=== PATIENT | male | born 1990 | race Caucasian/White ===

== ENCOUNTER 2017-07-04 20:21 | Emergency (ER) | payer BC ==
[2017-07-04 21:33] VITALS: BP 126/75
--- NOTE | 2017-07-06 09:58 | ER ---
DATE SEEN: 07/04/2017 CHIEF COMPLAINT: Chest pain. HISTORY OF PRESENT ILLNESS: This is a 26-year-old male who was at work, developed pain in the chest and head. Symptoms largely lasted about an hour, and by the time he got here, symptoms had spontaneously improved. There was no radiation. No association with any shortness of breath, fever, chills, cough, nausea, or vomiting. PAST MEDICAL HISTORY: Asthma. SOCIAL HISTORY: He is a smoker. MEDICATIONS: None except albuterol as needed. ALLERGIES: No known allergies. PHYSICAL EXAMINATION: GENERAL: He is well nourished. VITAL SIGNS: Oxygenation 100% on room air, pulse is 70 beats per minute, blood pressure is normal. EARS, NOSE, AND THROAT: Negative. NECK: Supple. Trachea is midline. CHEST: Clear. No reproducible tenderness. ABDOMEN: Soft. MENTAL STATUS: Normal affect. No signs of moy or psychosis. LABORATORY DATA: EKG normal sinus rhythm. No ST changes. IMPRESSION: Atypical chest pain. PLAN: My plan is to reassure the patient and he is to return home. Return to the ED with any worsening symptoms. Time seen is 2044. /[id number] CHIO/MARLENE
== END 2017-07-04 21:00 | disposition home or self-care (01) ==
LOC: FB.ED 20:21
DX: R07.89 Other chest pain (principal); J45.909 Unspecified asthma, uncomplicated; F17.200 Nicotine dependence, unspecified, uncomplicated
CPT/HCPCS: 93005; 99284

== ENCOUNTER 2018-01-28 06:37 | Emergency (ER) | payer SELFPAY ==
[2018-01-28] MEDS ORDERED: Albuterol/Ipratropium 3.0-0.5 MG/3 ML Neb Soln NEB ONE (07:07)
--- NOTE | 2018-01-28 07:22 | EDM.PDOC ---
ED HPI GENERAL MEDICAL PROBLEM - General Chief Complaint: Respiratory Problem Stated Complaint: COUGH Time Seen by Provider: 01/28/18 06:50 Source of Information: Reports: Patient History Limitations: Reports: No Limitations - History of Present Illness INITIAL COMMENTS - FREE TEXT/NARRATIVE: c/o asthma only as alb HFA, asthma has gotten worse in past month, not much benefit from albuterol HFA lives with and 2 children, moved to area to work at a local company that just moved, currently unemployed had a pill once for his asthma not used another inhaler headache Pain Score (Numeric/FACES): 8 - Related Data Allergies Allergy/AdvReac Type Severity Reaction Status Date / Time No Known Allergies Allergy Verified 01/28/18 06:50 Home Meds: Home Meds Albuterol [Ventolin HFA] 2 puff PO Q4H 01/28/18 [History] Fluticasone/Salmeterol [Fluticasone-Salmeterol 232-14] 2 each IH BID #1 aer.pow.[email or web address] 01/28/18 [Rx] predniSONE 20 mg PO DAILY #7 tab 01/28/18 [Rx] Past Medical History Respiratory History: Reports: Asthma Gastrointestinal History: Reports: Other (See Below) Other Gastrointestinal History: ulcers Social & Family History - Family History Family Medical History: Unobtainable - Tobacco Use Smoking Status *Q: Never Smoker - Caffeine Use Caffeine Use: Reports: Energy Drinks - Recreational Drug Use Recreational Drug Use: No - Living Situation & Occupation Living situation: Reports: Occupation: Employed ED ROS GENERAL - Review of Systems Review Of Systems: See Below Constitutional: Reports: No Symptoms. Denies: Fever HEENT: Reports: No Symptoms Respiratory: Reports: Shortness of Breath, Wheezing, Cough Cardiovascular: Reports: No Symptoms Endocrine: Reports: No Symptoms GI/Abdominal: Reports: No Symptoms : Reports: No Symptoms Musculoskeletal: Reports: No Symptoms Skin: Reports: No Symptoms Neurological: Reports: No Symptoms Psychiatric: Reports: No Symptoms Hematologic/Lymphatic: Reports: No Symptoms Immunologic: Reports: No Symptoms ED EXAM, GENERAL - Physical Exam Exam: See Below Exam Limited By: No Limitations General Appearance: Alert, WD/WN, No Apparent Distress Eye Exam: Bilateral Eye: Normal Inspection Ears: Normal External Exam, Hearing Grossly Normal Nose: Normal Inspection, Normal Mucosa, No Blood Throat/Mouth: Normal Inspection, Normal Lips, Normal Teeth, Normal Gums, Normal Oropharynx, Normal Voice, No Airway Compromise Head: Atraumatic, Normocephalic Neck: Normal Inspection, Supple, Non-Tender, Full Range of Motion Respiratory/Chest: No Accessory Muscle Use, Chest Non-Tender, Other (mild dyspnea, mild wheeze with cough) Cardiovascular: Regular Rate, Rhythm, No Edema, No Murmur GI/Abdominal: Soft, Non-Tender, No Distention Back Exam: Normal Inspection Extremities: Normal Inspection, Normal Range of Motion, Non-Tender, No Pedal Edema Neurological: Alert, Oriented, CN II-XII Intact, No Motor/Sensory Deficits Psychiatric: Normal Affect, Normal Mood Skin Exam: Warm, Dry, Intact, Normal Color, No Rash Lymphatic: No Adenopathy Course - Vital Signs Last Recorded V/S: Last Vital Signs Temp 36.9 C 01/28/18 06:56 Pulse 101 H 01/28/18 06:56 Resp 19 01/28/18 06:56 BP 134/81 01/28/18 06:56 Pulse Ox 98 01/28/18 06:56 - Orders/Labs/Meds Orders: Active Orders 24 hr Category Date Time Status RT Aerosol Therapy [RC] ASDIRECTED Care 01/28/18 07:08 Ordered Meds: Medications Discontinued Medications Generic Name Dose Route Start Last Admin Trade Name Ana Paula PRN Reason Stop Dose Admin Albuterol/Ipratropium 3 ml 01/28/18 07:07 Duoneb 3.0-0.5 Mg/3 Ml NEB 01/28/18 07:08 ONETIME ONE Departure - Departure Time of Disposition: 07:21 Disposition: Home, Self-Care 01 Condition: Good Clinical Impression: Exacerbation of asthma - Discharge Information Prescriptions: Fluticasone/Salmeterol [Fluticasone-Salmeterol 232-14] 2 each IH BID #1 aer.pow.ba predniSONE 20 mg PO DAILY #7 tab Instructions: Asthma Attack, Asthma, Adult Referrals: Tyrone Reeves MD [Primary Care Provider] - Forms: ED Department Discharge Additional Instructions: Take prednisone 20 mg 2 tabs daily for 2 days, then 1 tab daily for 3 days. Use fluticasone-salmeterol inhaler 2 puffs twice a day. Continue albuterol inhaler 2 puffs every 2-4 hours as needed. See Dr Reevse in 1 week. Return to ED if you are feeling worse. - My Orders Last 24 Hours: My Active Orders 01/28/18 07:08 RT Aerosol Therapy [RC] ASDIRECTED - Assessment/Plan Last 24 Hours: My Active Orders 01/28/18 07:08 RT Aerosol Therapy [RC] ASDIRECTED
[2018-01-28 07:36] VITALS: BP 130/77
== END 2018-01-28 07:53 | disposition home or self-care (01) ==
LOC: FB.ED 06:37
DX: J45.901 Unspecified asthma with (acute) exacerbation (principal)
CPT/HCPCS: 94640; 99282; J7620